=== PATIENT | male | born 1995 | race Caucasian/White ===

== ENCOUNTER 2017-10-31 16:21 | Emergency (ER) | payer BC ==
[~2017-10-31 16:21] MED LIST: Diphtheria,Pertussis(Acell),Tetanus Vaccine 0.5 ML Syringe IM ONE; Etomidate 2 MG/ML 20 ML SDV IVPUSH ONE; Lactated Ringers 1,000 ML IV ONE; Propofol 200 MG/20 ML SDV IVPUSH ONE; Rocuronium 100 MG/10 ML MDV ONE; Rocuronium 100 MG/10 ML Syringe IVPUSH ONE; Succinylcholine 200 MG/10 ML MDV IV STA; Succinylcholine 200 MG/10 ML MDV ONE
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
[2017-10-31] MEDS ORDERED: Sodium Chloride 0.9% 10 ML Syringe FLUSH PRN (16:32)
[2017-10-31] MEDS ORDERED: Sodium Chloride 0.9% 2.5 ML Syringe FLUSH PRN (16:32)
[2017-10-31 16:37] LABS: CHLORIDE,CL 104 mmol/L (98-107); SODIUM,NA 138 mmol/L (136-148)
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
== END 2017-10-31 16:48 ==
LOC: MW.ED 16:21
DX: S09.90XA Unspecified injury of head, initial encounter (principal); S00.12XA Contusion of left eyelid and periocular area, initial encounter; S40.022A Contusion of left upper arm, initial encounter; Z23 Encounter for immunization; V29.9XXA Motorcycle rider (driver) (passenger) injured in unspecified traffic accident, initial encounter
CPT/HCPCS: 31500; 36415; 43753; 51702; 71045; 80053; 80305; 81001; 85025; 85610; 86850; 86900; 86901; 90471; 90715; 96365; 99291; G0390; J0330; J2704; J3490; J7120; 99285